=== PATIENT | female | born 1970 | race Caucasian/White ===

== ENCOUNTER 2024-05-18 08:00 | Outpatient (RCR) | payer OTHER, SELFPAY | END 2024-07-02 12:28 | disposition home or self-care (01) | LOC: HO.PT 08:00 | PROVIDERS: PCP Internal Medicine; Visit Provider Physician Assistant | DX: M75.42 Impingement syndrome of left shoulder (principal) | CPT/HCPCS: 97033; 97110; 97140; 97161 ==